=== PATIENT | female | born 2000 | race Caucasian/White ===

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

== ENCOUNTER 2024-05-30 14:23 | Outpatient (REF) | payer MEDICAID, SELFPAY ==
--- NOTE | ~2024-05-30 | XR_ITS ---
EXAMINATION: XR LUMBOSACRAL SPINE CLINICAL INFORMATION: PAIN COMPARISON: None available. TECHNIQUE: Three views of the lumbosacral spine. FINDINGS: No acute cortical disruption or malalignment. No lytic or blastic lesions. XR/XR lumbar spine 2-3V IMPRESSION: No acute fracture or listhesis. Electronically signed by: Ricardo Tate MD 05/30/2024 03:08 PM EDT
--- NOTE | ~2024-05-30 | XR_ITS ---
EXAMINATION: XR THORACIC SPINE CLINICAL INFORMATION: PAIN COMPARISON: Chronic upper and lower back pain worsening pain x4 years TECHNIQUE: 3 views of the thoracic spine were obtained. FINDINGS: There is normal thoracic kyphosis. The vertebral heights, alignment and disc heights are normal. No visible acute fracture, dislocation or subluxation seen. Lytic or sclerotic process seen. The paravertebral soft tissues are normal. XR/XR thoracic spine 2V IMPRESSION: Unremarkable dorsal spine examination. Electronically signed by: Ector Mendoza MD 05/30/2024 03:13 PM EDT
--- NOTE | ~2024-05-30 | XR_ITS ---
EXAMINATION: XR CERVICAL SPINE CLINICAL INFORMATION: PAIN COMPARISON: July 23, 2018 is not available on PACS. TECHNIQUE: 3 views of the cervical spine were obtained. FINDINGS: Craniocervical junction is intact. No acute cortical disruption or malalignment. No lytic or blastic lesions. Upper airway is patent. XR/XR cervical spine 3V IMPRESSION: Normal cervical spine x-ray. Electronically signed by: Ricardo Tate MD 05/30/2024 03:11 PM EDT
--- OUTSIDE RECORDS SUMMARY | 2024-05-30 17:02 | XMS_ITS | Encounter Summary ---
Author Organization [employer] Address [address] [facility] [address] [place] [address] Care Team Providers Care Aircraft Lay Out Worker Name Role Phone Sho Smith MD Primary Care Provider [phone] Encounter Details Date Type Department Care Team ([facility] st Contact Info) Description 05/24/2024 Population Health Risk Score [facility] (C3) Department [address] [id number] Provider, Population Health Generic Social History Tobacco Use Types Packs/Day Years Used Date Smoking Tobacco: Never Assessed Comments Unknown Sex and Gender Information Value Date Recorded Sex Assigned at Female 01/10/2022 10:32 AM EDT Legal Sex Female 10:32 AM EDT Gender Identity Choose not to disclose 10:32 AM EDT Sexual Orientation Choose not to disclose 2021 10:32 AM EDT documented as of this encounter Plan of Treatment Not on file documented as of this encounter Visit Diagnoses Not on filedocumented in this encounter Care Teams Aircraft Lay Out Worker Relationship Specialty Start Date End Date Sho Smith MD [address] [place] [address] PCP - General Family Medicine 07/31/20 05/29/24 documented as of this encounter
--- OUTSIDE RECORDS SUMMARY | 2024-05-30 17:02 | XMS_ITS | Encounter Summary ---
Author Organization [employer] Address [address] [facility] [address] [place] [address] Care Team Providers Care Travel Freight And Passenger Agent Name Role Phone Sho Smith MD Primary Care Provider [phone] Reason for Visit * Reason Onset Date Comments Nurse Triage 05/27/2024 Encounter Details Date Type Department Care Team (Late st Contact Info) Description 05/27/2024 Telephone [facility] [address] [place] [address] Sho Smith MD [address] [place], [place] [phone] Nurse Triage Social History Tobacco Use Types Packs/Day Years Used Date Smoking Tobacco: Never Assessed Comments Unknown Sex and Gender Information Value Date Recorded Sex Assigned at Female 01/10/2022 10:32 AM EDT Legal Sex Female 10:32 AM EDT Gender Identity Choose not to disclose 10:32 AM EDT Sexual Orientation Choose not to disclose 2021 10:32 AM EDT documented as of this encounter Miscellaneous Notes * Telephone Encounter - Aleyda Stratton RN - 05/27/2024 1:40 PM EDT Call returned to Venus aEton to triage below. Reports having all over back pain x 2 days. No recent injury or fall. No redness, rash or bruising. Non radiaating pain. No numbness of extremities. No UTI sx. Using OTC ibuprofen and tyelnol with mild relief. Pt states did have a fall back in 2019 butnothing recently. Pt advised of disptoin, offered appt with [facility] provider tomorrow or Monday, unab le due to work conflict. Reviewed [facility] operating hours and that wait times vary. Reviewed home care advise, ER precautions and reasons to call back. Protocol Used: Back Pain (Adult) Protocol-Based Disposition: See in Office or Video Visit within 3 Days Insurance verified as active per Real Time Eligibility in Epic. Video visit offer not recorded Positive Triage Question: * Moderate back pain (e.g., interferes with normal activities) and present > 3 days * All higher-acuity triage questions were negative Care Advice Discussed: * Reassurance and Education - Back Pain * Cold or Heat * Continue Activity * Pain Medicines * Reasons To Call Back - Fever occurs - Numbness or weakness occurs - Loss of control of your bladder or bowel - Severe pain not better after taking pain medicines - Pain begins to shoot into the leg - Pain becomes worse - You become worse * Telephone Encounter - [place]ia [place] - 05/27/2024 1:14 PM EDT Symptom: Back Pain - Not From Injury Outcome: Schedule an appointment to be seen within 3 days Reason: Caller denied all higher acuity questions The caller accepted this outcome. documented in this encounter Plan of Treatment Not on file documented as of this encounter Visit Diagnoses Not on filedocumented in this encounter Care Teams Travel Freight And Passenger Agent Relationship Specialty Start Date End Date Sho Smith MD [address] [place] [id number] PCP - General Family Medicine 07/31/20 05/29/24 documented as of this encounter
--- OUTSIDE RECORDS SUMMARY | 2024-05-30 17:02 | XMS_ITS | Encounter Summary ---
Author Organization [employer] Address [address] [facility] [address] [place] [address] Care Team Providers Care Motion Picture Commentator Name Role Phone Unavailable Primary Care Provider Unavailabl e Encounter Details Date Type Department Care Team (Late st Contact Info) Description 05/30/2024 Orders Only [facility] [address] [place], [place] [phone] Davida Denson DO [address] [place] [address] Social History Tobacco Use Types Packs/Day Years [...] on file documented as of this encounter Procedures Procedure Name Priority Date/Time Associated Diagnosis Comments XR CERVICAL SPINE 3V Routine 05/30/2024 2:25 PM EDT documented in this encounter Results * XR CERVICAL SPINE 3V (05/30/2024 2:25 PM EDT) Anatomical Region Laterality Modality Abdomen Radiographic Denice ging 05/30/2024 2:25 PM EDT Narrative 05/30/2024 3:17 PM EDT ?[facility] ?[address] ?[place] [address] ?XRay Report ? Signed ? Patient: Angelito,Venus ?MR#: [id number] ? : 2000 ?Acct:[id number] ? Age/Sex: 24 / F ?ADM Date: 05/30/24 ? Loc: HO.HHCX ? Attending Dr: Davida Denson DO ? Ordering Physician: Davida Denson DO ?? Date of Service: 05/30/24 ?? Procedure(s): XR cervical spine 3V ?? Accession Number(s): [id number] ? cc: Davida Denson DO ? EXAMINATION: ?? XR CERVICAL SPINE ? CLINICAL INFORMATION: ?? PAIN ? COMPARISON: ?? July 23, 2018 is not available on PACS. ? TECHNIQUE: ?? 3 views of the cervical spine were obtained. ? FINDINGS: ?? Craniocervical junction is intact. No acute cortical disruption or ?? malalignment. No lytic or blastic lesions. Upper airway is patent. ? XR/XR cervical spine 3V ?? IMPRESSION: ?? Normal cervical spine x-ray. ? Electronically signed by: ??Ricardo Tate MD ??05/30/2024 03:11 PM ?? EDT RP ? Dictated By: ?Ricardo Esteban MD ? Signed By: ?<Electronically signed by Ricardo Asencio MD in OV> ? 05/30/24 1511 ? DD/ 1425 ? TD/TT: 05/30/24 1500 ? Tapping Machine Operator: ? Procedure Note Idalia Ramos - 05/30/[address] [address] XRay Report Signed Patient: Itzel Eaton#: [id number] : 2000Acct:[id number] Age/Sex: 24 M Date: 05/30/24 Loc: HO.HHCX Attending Dr: Davida Denson DO Ordering Physician: Davida Denson DO Date of Service: 05/30/24 Procedure(s): XR cervical spine 3V Accession Number(s): [id number] cc: Davida Denson DO EXAMINATION: XR CERVICAL SPINE CLINICAL INFORMATION: PAIN COMPARISON: July 23, 2018 is not available on PACS. TECHNIQUE: 3 views of the cervical spine were obtained. FINDINGS: Craniocervical junction is intact. No acute cortical disruption or malalignment. No lytic or blastic lesions. Upper airway is patent. XR/XR cervical spine 3V IMPRESSION: Normal cervical spine x-ray. Electronically signed by: Ricardo Tate MD 05/30/2024 03:11 PM EDT RP Dictated By: Ricardo Esteban MD Signed By: <Electronically signed by Ricardo Asencio MDin OV> 05/30/24 1511 DD/ 1425 TD/TT: 05/30/24 1500 Tapping Machine Operator: Davida Denson DO IMG XR PROCEDURES Final Resu lt documented in this encounter Visit Diagnoses Not on filedocumented in this encounter
--- OUTSIDE RECORDS SUMMARY | 2024-05-30 17:02 | XMS_ITS | Clinical Summary ---
Author Organization [employer] Address [address] [place] [address] Care Team Providers Care Hot Press Operator Name Role Phone Unavailable Primary Care Provider Unavailabl e Allergies No known active allergies Medications predniSONE (Deltasone) 20 MG tablet Take 1 tablet (20 mg) by mouth 2 times daily for 5 days. 10 tablet 5 06/05/19 25 Active naproxen (Naprosyn) 500 MG tablet Take 1 tablet (500 mg) by mouth if needed in the morning and at bedtime for mild pain. 40 tablet 1 5 05/31/19 26 Active baclofen (Lioresal) 10 MG tablet Take 1 tablet (10 mg) by mouth if needed in the morning, at noon, and at bedtime for muscle spasms. 40 tablet 1 5 07/30/19 25 Active Diclofenac Sodium 1 % gel Apply 2 g topically if needed in the morning, at noon, in the evening, and at bedtime (pain). 150 g 1 5 Active Encounters Date Type Department Care Team Description 05/30/2024 1:40 PM EDT Office Visit [facility] [address] [place] [phone] Chronic upper back pain (Primary Dx); Chronic bilateral low back pain without sciatica 05/30/2024 Orders Only [facility] [address] [place] [address] Davida Denson DO 05/27/2024 Telephone [facility] [address] [place] [address] Sho Smith MD Nurse Triage 05/24/2024 Population Health Risk Score [facility] () [address] [place] [address] Provider, Population Health Generic from Last 3 Months Social History Tobacco Use Types Packs/Day Years Used Date Smoking Tobacco: Never Assessed Comments Unknown Sex and Gender Information Value Date Recorded Sex Assigned at Female 01/10/2022 10:32 AM EDT Legal Sex Female 10:32 AM EDT Gender Identity Choose not to disclose 10:32 AM EDT Sexual Orientation Choose not to disclose 2021 10:32 AM EDT Last Filed Vital Signs Vital Sign Reading Time Taken Comments Blood Pressure 109/62 05/30/2024 1:26 PM EDT Pulse 98 05/30/2024 1:26 PM EDT Temperature 36.5 ??C (97.7 ??F) 05/30/2024 1:26 PM ED T Respiratory Rate 18 05/30/2024 1:26 PM EDT Oxygen Saturation 97% 05/30/2024 1:26 PM EDT Inhaled Oxygen Concentration - - Weight 49.1 kg (108 lb 3.2 oz) 05/30/2024 1:26 P M EDT Height 153 cm (5' 0.25 ) 05/05/2021 12:02 AM EST Body Mass Index 20.96 05/05/2021 12:02 AM EST Plan of Treatment Health Maintenance Due Date Last Done Comments Chlamydia and Gonorrhea Screening 2002 Depression Screening 2002 HIV Screening 2002 SDOH Screening 2002 Alcohol/Substance Use Screening 2014 Tobacco Screening 2014 Family Planning (PISQ) 2017 Hepatitis C Screening 01/08/2020 Pap Smear 2023 DTaP/Tdap/Td Vaccines (7 - Td or Tdap) 09/19/2023 09/18/2013, 05/02/2006, 05/12/2003, Additional history exists COVID-19 Vaccine ( season) 2023 11/05/2020, 10/15/2020 Zoster Vaccines (1 of 2) 01/08/2052 RSV Patients and Patients Aged 60 years or older (1 - 1-dose 75+ series) 2077 Hepatitis B Vaccines Completed 2002, 2002, 2002 HIB Vaccines Completed 05/12/2003, 03/2003, 2002, Additional history exists IPV Vaccines Completed 05/02/2006, 08/2003, 05/12/2003, Additional history exists HPV Vaccines Completed 03/21/2014, 11/2014, 11/14/2013, Additional history exists Hepatitis A Vaccines Completed 02/27/2018, 10/27/19 17 Meningococcal Vaccine Completed 12/20/2018, 014 Influenza Vaccine Completed 12/15/2023, , 12/04/2017, Additional history exists Pneumococcal Vaccine: Pediatrics (0 to 5 Years) and At-Risk Patients (6 to 49) Years) Aged Out No longer eligible based on patient's age to complete this topic RSV under 20 months Aged Out No longe r eligible based on patient's age to complete this topic Rotavirus Vaccines Aged Out No longer eligible based on patient's age to complete this topic Procedures Procedure Name Priority Date/Time Associated Diagnosis Comments XR CERVICAL SPINE 3V Routine 05/30/2024 2:25 PM EDT XR LUMBAR SPINE 2-3 VIEWS Routine 05/30/2024 2:25 PM EDT Chronic upper back pain Chronic bilateral low back pain without sciatica XR THORACIC SPINE 2 VIEWS Routine 05/30/2024 2:25 PM EDT Chronic upper back pain Chronic bilateral low back pain without sciatica from Last 3 Months Results * XR CERVICAL SPINE 3V (05/30/2024 2:25 PM EDT) Anatomical Region Laterality Modality Abdomen Radiographic Denice ging 05/30/2024 2:25 PM EDT Narrative 05/30/2024 3:17 PM EDT ?[facility] ?[address] ?[place] [address] ?XRay Report ? Signed ? Patient: Angelito,Venus ?MR#: [id number] ? : 2000 ?Acct:[id number] ? Age/Sex: 24 / F ?ADM Date: 05/30/24 ? Loc: HO.HHCX ? Attending Dr: Davida Denson DO ? Ordering Physician: Davida Denson DO ?? Date of Service: 05/30/24 ?? Procedure(s): XR cervical spine 3V ?? Accession Number(s): [id number] ? cc: Davida Denson DO ? EXAMINATION: [...] DD/ 1425 ? TD/TT: 05/30/24 1500 ? Dental Prosthetist: ? Procedure Note Richard, Image - 05/30/2024 [place] [address] XRay Report Signed Patient: Itzel Eaton#: [id number] : 2000Acct:[id number] Age/Sex: 24 / FADM Date: 05/30/24 Loc: HO.HHCX Attending Dr: Davida Denson DO Ordering Physician: Davida Denson DO Date of Service: 05/30/24 Procedure(s): XR cervical spine 3V Accession Number(s): [id number] cc: Davida Denson DO EXAMINATION: XR CERVICAL [...] 05/30/24 1511 DD/ 1425 TD/TT: 05/30/24 1500 Dental Prosthetist: us Davida Denson DO IMG XR PROCEDURES Final Resu lt * XR Lumbar Spine 2-3 Views (05/30/2024 2:25 PM EDT) Anatomical Region Laterality Modality Spine, L-spine Radiographic Denice ging 05/30/2024 2:25 PM EDT Narrative 05/30/2024 3:10 PM EDT ?[facility] ?[address] ?[place] [address] ?XRay Report ? Signed ? Patient: Venus Eaton ?MR#: [id number] ? : 2000 ?Acct:[id number] ? Age/Sex: 24 / F ?ADM Date: 05/30/24 ? Loc: HO.HHCX ? Attending Dr: Davida Denson DO ? Ordering Physician: Davida Denson DO ?? Date of Service: 05/30/24 ?? Procedure(s): XR lumbar spine 2-3V ?? Accession Number(s): [id number] ? cc: Davida Denson DO ? EXAMINATION: ?? XR LUMBOSACRAL SPINE ? CLINICAL INFORMATION: ?? PAIN ? COMPARISON: ?? None available. ? TECHNIQUE: ?? Three views of the lumbosacral spine. ? FINDINGS: ?? No acute cortical disruption or malalignment. No lytic or blastic ?? lesions. ? XR/XR lumbar spine 2-3V ?? IMPRESSION: ?? No acute fracture or listhesis. ? Electronically signed by: ??Ricardo Tate MD ??05/30/2024 03:08 PM ?? EDT RP ? Dictated By: ?Ricardo Esteban MD ? Signed By: ?<Electronically signed by Ricardo Asencio MD in OV> ? 05/30/24 1508 ? DD/ 1425 ? TD/TT: 05/30/24 1500 ? Dental Prosthetist: ? Procedure Note Richard, Idalia - 05/30/[address] [address] XRay Report Signed Patient: Itzel Eaton#: [id number] : 2000Acct:[id number] Age/Sex: 24 FADM Date: 05/30/24 Loc: .HHCX Attending Dr: Davida Denson DO Ordering Physician: Davida Denson DO Date of Service: 05/30/24 Procedure(s): XR lumbar spine 2-3V Accession Number(s): [id number] cc: Davida Denson DO EXAMINATION: XR LUMBOSACRAL SPINE CLINICAL INFORMATION: PAIN COMPARISON: None available. TECHNIQUE: Three views of the lumbosacral spine. FINDINGS: No acute cortical disruption or malalignment. No lytic or blastic lesions. XR/XR lumbar spine 2-3V IMPRESSION: No acute fracture or listhesis. Electronically signed by: Ricardo Tate MD 05/30/2024 03:08 PM EDT Dictated By: Ricardo Esteban MD Signed By: <Electronically signed by Ricardo Asencio MDin OV> 05/30/24 1508 DD/ 1425 TD/TT: 05/30/24 1500 Dental Prosthetist: Davida Denson DO IMG XR PROCEDURES Final Resu lt * XR Thoracic Spine 2 Views (05/30/2024 2:25 PM EDT) Anatomical Region Laterality Modality Spine, T-spine Radiographic Denice ging 05/30/2024 2:25 PM EDT Narrative 05/30/2024 3:19 PM EDT ?[facility] ?[address] ?[place] [address] ?XRay Report ? Signed ? Patient: Angelito,Venus ?MR#: [id number] ? : 2000 ?Acct:[id number] ? Age/Sex: 24 / F ?ADM Date: 05/30/24 ? Loc: HO.HHCX ? Attending Dr: Davida Denson DO ? Ordering Physician: Davida Denson DO ?? Date of Service: 05/30/24 ?? Procedure(s): XR thoracic spine 2V ?? Accession Number(s): [id number] ? cc: Davida Denson DO ? EXAMINATION: ?? XR THORACIC SPINE ? CLINICAL INFORMATION: ?? PAIN ? COMPARISON: ?? Chronic upper and lower back pain worsening pain x4 years ? TECHNIQUE: ?? 3 views of the thoracic spine were obtained. ? FINDINGS: ?? There is normal thoracic kyphosis. The vertebral heights, alignment and ?? disc heights are normal. No visible acute fracture, dislocation or ?? subluxation seen. Lytic or sclerotic process seen. The paravertebral ?? soft tissues are normal. ? XR/XR thoracic spine 2V ?? IMPRESSION: ?? Unremarkable dorsal spine examination. ? Electronically signed by: ??Ector Kelly GILMAN ??05/30/2024 03:13 PM EDT RP ? Dictated By: ?Kelly,Ector S MD ? Signed By: ?<Electronically signed by Ector S MD Kelly in OV> ?05/30/24 1513 ? DD/ 1425 ? TD/TT: 05/30/24 1500 ? Dental Prosthetist: MSM ? Procedure Note Idalia Ramos - 05/30/2024 [facility] [address] [place] [address] XRay Report Signed Patient: Sagar EatonKemal#: [id number] : 2000Acct:[id number] Age/Sex: 24 / FADM Date: 05/30/24 Loc: HO.HHCX Attending Dr: Davida Denson DO Ordering Physician: Davida Denson DO Date of Service: 05/30/24 Procedure(s): XR thoracic spine 2V Accession Number(s): [id number] cc: Davida Denson DO EXAMINATION: XR THORACIC SPINE CLINICAL INFORMATION: PAIN COMPARISON: Chronic upper and lower back pain worsening pain x4 years TECHNIQUE: 3 views of the thoracic spine were obtained. FINDINGS: There is normal thoracic kyphosis. The vertebral heights, alignment and disc heights are normal. No visible acute fracture, dislocation or subluxation seen. Lytic or sclerotic process seen. The paravertebral soft tissues are normal. XR/XR thoracic spine 2V IMPRESSION: Unremarkable dorsal spine examination. Electronically signed by: Ector Mendoza MD 05/30/2024 03:13 PM EDT RP Dictated By: Ector Mendoza MD Signed By: <Electronically signed by Ector Mendoza MD in OV> 05/30/24 1513 DD/ 1425 TD/TT: 05/30/24 1500 Dental Prosthetist: ALBERTO Davida Denson DO IMG XR PROCEDURES Final Resu lt from Last 3 Months Insurance [facility]
--- OUTSIDE RECORDS SUMMARY | 2024-05-30 17:02 | XMS_ITS | Encounter Summary ---
Author Organization [employer] Address [address] 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 Name Role Phone Unavailable Primary Care Provider Unavailabl e Reason for Visit * Reason Comments Back Pain Encounter Details Date Type Department Care Team (Late st Contact Info) Description 05/30/2024 1:40 PM EDT Office Visit [facility] [address] [place] [phone] Chronic upper back pain (Primary Dx); Chronic bilateral low back pain without sciatica Social History Tobacco Use Types Packs/Day Years Used Date Smoking Tobacco: Never Assessed Comments Unknown Sex and Gender Information Value Date Recorded Sex Assigned at Female 01/10/2022 10:32 AM EDT Legal Sex Female 10:32 AM EDT Gender Identity Choose not to disclose 10:32 AM EDT Sexual Orientation Choose not to disclose 2021 10:32 AM EDT documented as of this encounter Last Filed Vital Signs Vital Sign Reading [...] oz) 05/30/2024 1:26 P M EDT Height - - Body Mass Index 20.96 05/05/2021 12:02 AM EST documented in this encounter Plan of Treatment Scheduled Orders Name Type Priority Associated Diagnoses Orde r Schedule XR Cervical Spine 2-3 Views Imaging Routine Chronic upper back pain Chronic bilateral low back pain without sciatica Expected: 05/30/2024, Expires: 05/30/2025 documented as of this encounter Procedures Procedure Name Priority Date/Time Associated Diagnosis Comments XR LUMBAR SPINE 2-3 VIEWS Routine 05/30/2024 2:25 PM EDT Chronic upper back pain Chronic bilateral low back pain without sciatica XR THORACIC SPINE 2 VIEWS Routine 05/30/2024 2:25 PM EDT Chronic upper back pain Chronic bilateral low back pain without sciatica documented in this encounter Results * XR Lumbar Spine 2-3 Views (05/30/2024 2:25 PM EDT) Anatomical Region Laterality Modality Spine, L-spine Radiographic Denice ging 05/30/2024 2:25 PM EDT Narrative 05/30/2024 3:10 PM EDT ?[facility] ?[address] ?[place] [address] ?XRay Report ? Signed ? Patient: Venus Eaton ?MR#: [id number] ? : 2000 ?Acct:[id number] ? Age/Sex: 24 / F ?ADM Date: 05/30/24 ? Loc: HO.HHCX ? Attending Dr: Davida Denson DO ? Ordering Physician: Davida Denson DO ?? Date of Service: 05/30/24 ?? Procedure(s): XR lumbar spine 2-3V ?? Accession Number(s): [id number] ? cc: Davida Denson DO ? EXAMINATION: [...] DD/ 1425 ? TD/TT: 05/30/24 1500 ? Blasting Gang Miner: ? Procedure Note Donotandreter, Image - 05/30/[address] [address] XRay Report Signed Patient: Itzel Eaton#: [id number] : 2000Acct:[id number] Age/Sex: 24 Date: 05/30/24 Loc: HO.HHCX Attending Dr: Davida Denson DO Ordering Physician: Davida Denson DO Date of Service: 05/30/24 Procedure(s): XR lumbar spine 2-3V Accession Number(s): [id number] cc: Davida Denson DO EXAMINATION: XR LUMBOSACRAL [...] 05/30/24 1508 DD/ 1425 TD/TT: 05/30/24 1500 Blasting Gang Miner: Davida Denson DO IMG XR PROCEDURES Final Resu lt * XR Thoracic Spine 2 Views (05/30/2024 2:25 PM EDT) Anatomical Region Laterality Modality Spine, T-spine Radiographic Denice ging 05/30/2024 2:25 PM EDT Narrative 05/30/2024 3:19 PM EDT ?[facility] ?[address] ?[place] [address] ?XRay Report ? Signed ? Patient: Angelito,Venus ?MR#: [id number] ? : 2000 ?Acct:[id number] ? Age/Sex: 24 / F ?ADM Date: 05/30/24 ? Loc: HO.HHCX ? Attending Dr: Davida Denson DO ? Ordering Physician: Davida Denson DO ?? Date of Service: 05/30/24 ?? Procedure(s): XR thoracic spine 2V ?? Accession Number(s): [id number] ? cc: Davida Denson DO ? EXAMINATION: [...] spine examination. ? Electronically signed by: ??Ector Mendoza MD ??05/30/2024 03:13 PM EDT RP ? Dictated By: ?Ector Mendoza MD ? Signed By: ?<Electronically signed by Ector Mendoza MD in OV> ?05/30/24 1513 ? DD/ 1425 ? TD/TT: 05/30/24 1500 ? Blasting Gang Miner: MSM ? Procedure Note Richard, Image - 05/30/2024 [facility] [address] [place] [address] XRay Report Signed Patient: Itzel Eaton#: [id number] : 2000Acct:[id number] Age/Sex: 24 / FADM Date: 05/30/24 Loc: HO.HHCX Attending Dr: Davida Denson DO Ordering Physician: Davida Denson DO Date of Service: 05/30/24 Procedure(s): XR thoracic spine 2V Accession Number(s): [id number] cc: Davida Denson DO EXAMINATION: XR THORACIC [...] Ector Mendoza MD 05/30/2024 03:13 PM EDT Dictated By: Ector Mendoza MD Signed By: <Electronically signed by Ector Mendoza MD in OV> 05/30/24 1513 DD/ 1425 TD/TT: 05/30/24 1500 Blasting Gang Miner: ALBERTO Davida Denson DO IMG XR PROCEDURES Final Resu lt documented in this encounter Visit Diagnoses Diagnosis Chronic upper back pain- Primary Chronic bilateral low back pain without sciatica documented in this encounter
== END 2024-05-30 14:24 | disposition home or self-care (01) ==
LOC: HO.HHCX 14:23
PROVIDERS: Visit Provider Family Medicine
DX: M54.9 Dorsalgia, unspecified (principal); G89.29 Other chronic pain; M54.50 Low back pain, unspecified
CPT/HCPCS: 72040; 72070; 72100

== ENCOUNTER → 2024-05-30 14:25 | Outpatient (BNV) | payer MEDICAID, SELFPAY | PROVIDERS: Visit Provider Radiology Diagnostic Radiology | DX: M54.50 Low back pain, unspecified (principal); M54.2 Cervicalgia; M54.6 Pain in thoracic spine | CPT/HCPCS: 72040; 72070; 72100 ==